=== PATIENT | female | born 1945 | race Caucasian/White ===

== ENCOUNTER 2023-10-22 13:22 | Emergency (ER) | payer BC, OTHER ==
[~2023-10-22] VITALS: Ht 160 cm; Wt 87.1 kg
[2023-10-22 13:29] VITALS: BP_SYST 217; PULSE 63; RESP 16; TEMP 97; O2SAT 94
[2023-10-22] MEDS ORDERED: IBUP-1969 PO (15:19)
[2023-10-22 15:33] VITALS: BP_SYST 155; PULSE 68; RESP 16; TEMP 97; O2SAT 96
== END 2023-10-22 15:32 | disposition home or self-care (01) ==
LOC: SED 13:22
DX: S06.0XAA Concussion with loss of consciousness status unknown, initial encounter (principal); W22.8XXA Striking against or struck by other objects, initial encounter; Y93.89 Activity, other specified; Y92.89 Other specified places as the place of occurrence of the external cause; Y99.8 Other external cause status
CPT/HCPCS: 70450-TC; 99284